=== PATIENT | female | born 1980 | race American Indian/Alaskan Native ===

== ENCOUNTER 2018-08-22 08:42 | Outpatient (CLI) | payer OTHER | END 2018-08-22 09:55 | disposition home or self-care (01) | LOC: NST 08:42 | DX: Z34.83 Encounter for supervision of other normal pregnancy, third trimester (principal) ==

== ENCOUNTER 2018-09-25 08:27 | Inpatient (IN) | payer OTHER ==
[~2018-09-25] VITALS: Ht 175.3 cm; Wt 120.2 kg
[2018-10-11] MEDS ORDERED: PRENATAL TABLE1 EAC1 PO (07:49)
[2018-10-11] MEDS ORDERED: IRON PO (07:50)
[2018-10-11] MEDS ORDERED: VITAMIN C1000 MG PO (07:51)
[2018-10-11] MEDS ORDERED: VITAMIN D1000 UNIT PO (07:51)
[2018-10-12] MEDS ORDERED: IRON18 MG PO (18:51)
== END 2018-10-13 12:45 | disposition home or self-care (01) | DRG 768 ==
LOC: LDR 09-26 14:00 → SURG-SUITE 10-11 05:17
PROC: 10E0XZZ Delivery of Products of Conception, External Approach (ICD-10-PCS; principal; 2018-10-11)
PROC: 0DQR0ZZ Repair Anal Sphincter, Open Approach (ICD-10-PCS; 2018-10-11)
PROC: 0W8NXZZ Division of Female Perineum, External Approach (ICD-10-PCS; 2018-10-11)
PROC: 4A1HXCZ Monitoring of Products of Conception, Cardiac Rate, External Approach (ICD-10-PCS; 2018-10-11)
PROC: 4A033R1 Measurement of Arterial Saturation, Peripheral, Percutaneous Approach (ICD-10-PCS; 2018-10-11)
DX: O70.21 Third degree perineal laceration during delivery, IIIa (principal); Z37.0 Single live birth; Z3A.39 39 weeks gestation of pregnancy; Z22.330 Carrier of Group B streptococcus

== ENCOUNTER 2018-09-26 11:49 | Outpatient (CLI) | payer OTHER | END 2018-09-26 12:34 | disposition home or self-care (01) | LOC: NST 11:49 | DX: Z34.83 Encounter for supervision of other normal pregnancy, third trimester (principal) ==

== ENCOUNTER 2018-10-04 16:40 | Outpatient (CLI) | payer OTHER | END 2018-10-04 17:38 | disposition home or self-care (01) | LOC: NST 16:40 | DX: Z34.83 Encounter for supervision of other normal pregnancy, third trimester (principal) ==

== ENCOUNTER 2018-10-09 09:48 | Outpatient (CLI) | payer OTHER | END 2018-10-09 10:48 | disposition home or self-care (01) | LOC: NST 09:48 | DX: Z34.83 Encounter for supervision of other normal pregnancy, third trimester (principal) ==